=== PATIENT | male | born 1995 | race Two or more races ===

== ENCOUNTER 2018-04-13 01:56 | Emergency (ER) | payer BC, MEDICAID ==
[~2018-04-13] VITALS: Ht 193 cm; Wt 144.2 kg
[2018-04-13] MEDS ORDERED: ONDANSETRON ODT 4 MG ONE (02:17)
--- NOTE | 2018-04-13 02:29 | NUR ---
HR IS STILL 120-130'S GIVEN URINE CUP FOR UA PT UNDERSTOOD
[2018-04-13] MEDS ORDERED: ONDANSETRON ODT 4 MG PO ONE (02:30)
--- NOTE | 2018-04-13 02:35 | NUR ---
GIVEN ZOFRAN PO PER NAUSEA
[2018-04-13 02:36] LABS: BASOPHILS % (AUTO) 1 % (0-1); EOSINOPHILS # (AUTO) 0.03 x10^3/uL (0-0.4); EOSINOPHILS % (AUTO) 0 % (1-7); LYMPHOCYTES # (AUTO) 3.08 x10^3/uL (1-3.4); LYMPHOCYTES % (AUTO) 23 % (22-44); MD NO; MEAN CORPUSCULAR HEMOGLOBIN 26.7 pg (27.5-34.5); MEAN CORPUSCULAR HGB CONC 32.8 g/dL (33.2-36.2); MEAN CORPUSCULAR VOLUME 81.3 fL (81-97); MEAN PLATELET VOLUME 7.9 fL (7.4-10.4); MONOCYTES # (AUTO) 0.82 x10^3/uL (0.2-0.8); MONOCYTES % (AUTO) 6 % (2-9); NEUTROPHILS # (AUTO) 9.22 x10^3/uL (1.8-6.8); NEUTROPHILS % (AUTO) 70 % (42-75); PLATELET COUNT 537 x10^3/uL (130-400); RED BLOOD COUNT 4.53 x10^6/uL (4.38-5.82); RED CELL DISTRIBUTION WIDTH 14.2 % (9.4-14.8)
--- NOTE | 2018-04-13 02:39 | NUR ---
US IN RM
[2018-04-13 02:49] LABS: ALANINE AMINOTRANSFERASE 47 U/L (12-78); ALBUMIN 3.5 g/dL (3.4-5.0); ANION GAP 9 mmol/L (5-15); CALCIUM 8.5 mg/dL (8.5-10.1); CHLORIDE 105 mmol/L (98-107); CREATININE 1.07 mg/dL (0.7-1.3)
[2018-04-13 02:51] LABS: ALKALINE PHOSPHATASE 77 U/L (45-117); BILIRUBIN,TOTAL 0.3 mg/dL (0.2-1.0); TOTAL PROTEIN 7.8 g/dL (6.4-8.2)
[2018-04-13] MEDS ORDERED: MAALOX/HYOSCYAMINE/LIDOCAINE 45 ML BTL ONE (02:57)
[2018-04-13] MEDS ORDERED: MAALOX/HYOSCYAMINE/LIDOCAINE 45 ML BTL PO ONE (03:00)
--- NOTE | 2018-04-13 04:18 | NUR ---
DC ORDER WAS RECEIVED
--- NOTE | 2018-04-13 04:24 | NUR ---
GIVEN DC INSTRUCTION WITH PCP INFORMATION LIST PT WILL FOLLOW UP WITH PCP IF NOT FEELING BETTER OR COMING TO ER
[2018-04-13 04:25] VITALS: BP 117/89
[2018-04-14] MEDS ORDERED: FAMO-79 PO (21:15)
== END 2018-04-13 04:27 | disposition home or self-care (01) ==
LOC: ED 02:58
DX: R10.13 Epigastric pain (principal); R11.10 Vomiting, unspecified
CPT/HCPCS: 36415; 76700; 80053; 83690; 85025; 86677; 93005; 99284; Q0162

== ENCOUNTER 2018-04-14 20:04 | Inpatient (IN) | payer MEDICAID ==
[~2018-04-14] VITALS: Ht 182.9 cm; Wt 128.9 kg
--- NOTE | 2018-04-14 21:03 | NUR ---
PT TO ROOM FROM LOBBY AT THIS TIME.
[2018-04-14] MEDS ORDERED: FAMO-79 PO (21:15)
[2018-04-14 22:10] LABS: BASOPHILS # (AUTO) 0.08 x10^3/uL (0-0.1); BASOPHILS % (AUTO) 1 % (0-1); EOSINOPHILS # (AUTO) 0.05 x10^3/uL (0-0.4); EOSINOPHILS % (AUTO) 0 % (1-7); LYMPHOCYTES # (AUTO) 3.97 x10^3/uL (1-3.4); LYMPHOCYTES % (AUTO) 29 % (22-44); MD NO; MEAN CORPUSCULAR HEMOGLOBIN 26.6 pg (27.5-34.5); MEAN CORPUSCULAR HGB CONC 32.9 g/dL (33.2-36.2); MEAN CORPUSCULAR VOLUME 80.9 fL (81-97); MEAN PLATELET VOLUME 7.9 fL (7.4-10.4); MONOCYTES # (AUTO) 1.21 x10^3/uL (0.2-0.8); MONOCYTES % (AUTO) 9 % (2-9); NEUTROPHILS # (AUTO) 8.36 x10^3/uL (1.8-6.8); NEUTROPHILS % (AUTO) 61 % (42-75); PLATELET COUNT 540 x10^3/uL (130-400); RED BLOOD COUNT 4.55 x10^6/uL (4.38-5.82); RED CELL DISTRIBUTION WIDTH 14.1 % (9.4-14.8)
[2018-04-14 22:21] LABS: ALANINE AMINOTRANSFERASE 49 U/L (12-78); ALBUMIN 3.4 g/dL (3.4-5.0); ANION GAP 9 mmol/L (5-15); CALCIUM 8.3 mg/dL (8.5-10.1); CHLORIDE 105 mmol/L (98-107)
[2018-04-14 22:24] LABS: ALKALINE PHOSPHATASE 74 U/L (45-117); BILIRUBIN,TOTAL 0.4 mg/dL (0.2-1.0); TOTAL PROTEIN 7.4 g/dL (6.4-8.2)
[2018-04-14] MEDS ORDERED: OMNIPAQUE 350 MG/ML, 100ML BOTTLE ONE (22:54)
--- NOTE | 2018-04-14 23:01 | NUR ---
PT REQUESTING MED FOR PAIN & NAUSEA. TOOK ZOFRAN 4MG PO AT 1900 TODAY. PAIN CURRENTLY 06/23. PT RESTING ON BED W/ SIDE RAILS UP X2. Addendum: 04/14/18 at 2303 by CAS SYLVIA NOTIFIED OF PT REQUEST.
[2018-04-14] MEDS ORDERED: METOCLOPRAMIDE 5 MG/ML, 2ML ONE (23:09)
--- NOTE | 2018-04-14 23:17 | NUR ---
PT WILL BE ADMITTED D/T PERICARDIAL EFFUSION AND ASCITES CARDS CALLED
[2018-04-14] MEDS ORDERED: METOCLOPRAMIDE 5 MG/ML, 2ML IVPush ONE (23:30)
--- NOTE | 2018-04-14 23:54 | NUR ---
given report to jd duggan
--- NOTE | 2018-04-15 00:03 | NUR ---
pt resting in bed, no complaints at this time, vss.
[2018-04-15 00:14] LABS: TROPONIN I < 0.015 ng/mL (0.000-0.045)
--- NOTE | 2018-04-15 01:39 | NUR ---
REPORT CALLED TO FLOOR
[2018-04-15 02:00] LABS: FREE T4 (FREE THYROXINE) 1.95 ng/dL (0.76-1.46)
[2018-04-15] MEDS ORDERED: ONDANSETRON 2MG/ML, 2ML IVPush PRN (02:00)
[2018-04-15] MEDS ORDERED: ACETAMINOPHEN 325 MG TABLET PO PRN ×2 (02:00→16:30)
[2018-04-15] MEDS ORDERED: IBUPROFEN 600 MG TABLET PO PRN (02:00)
[2018-04-15 02:21] VITALS: BP 140/82
[2018-04-15 02:22] VITALS: BP 140/82
[2018-04-15] MEDS ORDERED: ONDA4TAB13 SL (02:37)
[2018-04-15 04:15] LABS: MICROSCOPIC NOT IND
[2018-04-15 04:42] LABS: CULTURE INDICATED? NO
[2018-04-15 07:07] VITALS: BP 131/83
[2018-04-15] MEDS: PANTOPRAZOLE 40 MG IV IVPush SCH (08:32)
[2018-04-15] MEDS ORDERED: SUCCINYLCHOLINE 20 MG/ML, 10ML ONE (08:56)
[2018-04-15] MEDS ORDERED: VECURONIUM 10 MG ONE (08:56)
[2018-04-15] MEDS: SODIUM CHLORIDE 0.9% 1,000 ML IV SCH ×3 (10:30→22:00)
[2018-04-15 11:15] VITALS: BP 103/73
[2018-04-15 12:41] VITALS: BP 118/79
[2018-04-15] MEDS ORDERED: MIDAZOLAM 1 MG/ML, 2ML ONE ×2 (15:04→15:22)
[2018-04-15] MEDS ORDERED: FENTANYL PF 100 MCG/2ML ONE ×4 (15:04→18:30)
[2018-04-15] MEDS ORDERED: LIDOCAINE 2%, 20ML ONE (15:09)
[2018-04-15] MEDS ORDERED: LIDOCAINE 1%, 20ML ONE (15:09)
[2018-04-15] MEDS ORDERED: FENTANYL PF 250 MCG/5ML ONE (15:53)
[2018-04-15] MEDS ORDERED: ZOLPIDEM 5MG TABLET PO PRN (16:30)
[2018-04-15] MEDS ORDERED: MIDAZOLAM 1 MG/ML, 5ML ONE (16:45)
[2018-04-15 16:52] LABS: ANA SCREEN NEGATIVE (Negative)
[2018-04-15] MEDS ORDERED: PROPOFOL 100 ML IV ONE (17:50)
[2018-04-15] MEDS ORDERED: DEXTROSE 4 GM TAB.CHEW PO PRN (19:00)
[2018-04-15] MEDS ORDERED: GLUCAGON 1 MG IM PRN (19:00)
[2018-04-15] MEDS ORDERED: BISACODYL 10 MG SUPP PR PRN (19:00)
[2018-04-15] MEDS ORDERED: FAMOTIDINE 20 MG/2 ML IV SCH (19:00)
[2018-04-15] MEDS ORDERED: SENNOSIDES 8.8 MG/5 ML ORAL SOL NG PRN (19:00)
[2018-04-15] MEDS ORDERED: DEXTROSE 50%, 50ML SYRINGE IVPush PRN (19:00)
[2018-04-15] MEDS ORDERED: LACTULOSE 20 GM/30 ML UDC NG PRN (19:00)
[2018-04-15] MEDS ORDERED: FENTANYL PF 100 MCG/2ML IVPush PRN (19:00)
[2018-04-15] MEDS ORDERED: SENNA/DOCUSATE TABLET NG PRN (19:00)
[2018-04-15] MEDS ORDERED: PHARMACY MAY ADJ FOR RENAL FX MC SCH (19:00)
[2018-04-15] MEDS ORDERED: LIDOCAINE-MPF 1%, 2ML ENDO PRN (19:00)
[2018-04-15] MEDS: PROPOFOL 100 ML IV PRN ×2 (19:55→22:23)
[2018-04-15] MEDS ORDERED: FENTANYL PF 100 MCG/2ML IVPush ONE (20:00)
[2018-04-15 20:14] LABS: CULTURE INDICATED? YES; MICROSCOPIC INDICATED
[2018-04-15] MEDS ORDERED: INSULIN LISPRO 100 UNITS/ML, PEN SQ-INSULIN SCH (21:00)
[2018-04-15] MEDS: INSULIN LISPRO 100 UNITS/ML, PEN SQ-INSULIN SCH (21:00)
[2018-04-15] MEDS: SODIUM CHLORIDE FLUSH 10ML SYR IVF SCH (22:05)
[2018-04-15] MEDS ORDERED: SODIUM CHLORIDE 0.9% 1,000 ML IV SCH (22:30)
[2018-04-15] MEDS: ALBUTEROL/IPRATROPIUM 2.5MG/0.5MG, 3 ML INLINE SCH (23:00)
[2018-04-16 00:02] LABS: RAPID INFLUENZA A Negative (Negative); RAPID INFLUENZA B Negative (Negative)
[2018-04-16] MEDS: PROPOFOL 100 ML IV PRN ×3 (00:54→06:45)
[2018-04-16] MEDS: INSULIN LISPRO 100 UNITS/ML, PEN SQ-INSULIN SCH ×2 (03:00→08:31)
[2018-04-16] MEDS ORDERED: SODIUM CHLORIDE 0.9%, 500ML IVBOLUS ONE (04:00)
[2018-04-16 04:45] LABS: ALBUMIN 2.7 g/dL (3.4-5.0); ANION GAP 8 mmol/L (5-15); BASOPHILS # (AUTO) 0.02 x10^3/uL (0-0.1); BASOPHILS % (AUTO) 0 % (0-1); CALCIUM 7.5 mg/dL (8.5-10.1); CHLORIDE 110 mmol/L (98-107); EOSINOPHILS % (AUTO) 0 % (1-7); LYMPHOCYTES # (AUTO) 0.81 x10^3/uL (1-3.4); LYMPHOCYTES % (AUTO) 8 % (22-44); MD NO; MEAN CORPUSCULAR HGB CONC 33.4 g/dL (33.2-36.2); MEAN CORPUSCULAR VOLUME 80.9 fL (81-97); MEAN PLATELET VOLUME 8.1 fL (7.4-10.4); MONOCYTES # (AUTO) 0.46 x10^3/uL (0.2-0.8); MONOCYTES % (AUTO) 5 % (2-9); NEUTROPHILS # (AUTO) 8.65 x10^3/uL (1.8-6.8); NEUTROPHILS % (AUTO) 87 % (42-75); PLATELET COUNT 466 x10^3/uL (130-400); RED BLOOD COUNT 3.72 x10^6/uL (4.38-5.82); RED CELL DISTRIBUTION WIDTH 13.9 % (9.4-14.8)
[2018-04-16 04:57] LABS: ALANINE AMINOTRANSFERASE 38 U/L (12-78); ALKALINE PHOSPHATASE 62 U/L (45-117); BILIRUBIN,TOTAL 0.5 mg/dL (0.2-1.0); CREATININE 0.91 mg/dL (0.7-1.3); TOTAL PROTEIN 6.2 g/dL (6.4-8.2)
[2018-04-16] MEDS: ALBUTEROL/IPRATROPIUM 2.5MG/0.5MG, 3 ML INLINE SCH ×2 (07:05→10:45)
[2018-04-16] MEDS: PANTOPRAZOLE 40 MG IV IVPush SCH (08:47)
[2018-04-16] MEDS: SODIUM CHLORIDE FLUSH 10ML SYR IVF SCH ×2 (08:48→21:16)
[2018-04-16] MEDS ORDERED: FUROSEMIDE 20 MG/2 ML IV ONE (09:30)
[2018-04-16] MEDS ORDERED: OMNIPAQUE 350 MG/ML, 100ML BOTTLE ONE (15:36)
[2018-04-16] MEDS ORDERED: ALBUTEROL SULFATE 2.5 MG/3 ML NPPB SCH (20:00)
[2018-04-16] MEDS ORDERED: SODIUM CHLORIDE 0.9% 1,000 ML IV SCH (22:30)
[2018-04-17 04:43] LABS: ANION GAP 9 mmol/L (5-15); CALCIUM 8.2 mg/dL (8.5-10.1); CHLORIDE 107 mmol/L (98-107); CREATININE 0.88 mg/dL (0.7-1.3)
[2018-04-17 04:52] LABS: BASOPHILS % (AUTO) 0 % (0-1); EOSINOPHILS # (AUTO) 0.01 x10^3/uL (0-0.4); EOSINOPHILS % (AUTO) 0 % (1-7); LYMPHOCYTES # (AUTO) 2.06 x10^3/uL (1-3.4); LYMPHOCYTES % (AUTO) 18 % (22-44); MD NO; MEAN CORPUSCULAR VOLUME 81.2 fL (81-97); MEAN PLATELET VOLUME 7.7 fL (7.4-10.4); MONOCYTES # (AUTO) 0.91 x10^3/uL (0.2-0.8); MONOCYTES % (AUTO) 8 % (2-9); NEUTROPHILS # (AUTO) 8.41 x10^3/uL (1.8-6.8); NEUTROPHILS % (AUTO) 74 % (42-75); PLATELET COUNT 478 x10^3/uL (130-400); RED BLOOD COUNT 4.11 x10^6/uL (4.38-5.82); RED CELL DISTRIBUTION WIDTH 14.5 % (9.4-14.8)
[2018-04-17] MEDS: SODIUM CHLORIDE FLUSH 10ML SYR IVF SCH ×2 (07:26→21:06)
[2018-04-17] MEDS: PANTOPRAZOLE 40 MG IV IVPush SCH (07:26)
[2018-04-17 14:30] VITALS: BP 141/84
[2018-04-17] MEDS ORDERED: POLYETHYLENE GLYCOL 17 GM PACKET PO PRN (15:30)
[2018-04-17] MEDS ORDERED: LACTULOSE 20 GM/30 ML UDC PO PRN (15:30)
[2018-04-17] MEDS ORDERED: BISACODYL 10 MG SUPP PR PRN (15:30)
[2018-04-17] MEDS ORDERED: MAGNESIUM CITRATE 300ML ORAL SOL PO PRN (15:30)
[2018-04-17 20:29] VITALS: BP 148/85
[2018-04-18 01:28] VITALS: BP 143/84
[2018-04-18 05:51] LABS: BASOPHILS # (AUTO) 0.03 x10^3/uL (0-0.1); BASOPHILS % (AUTO) 0 % (0-1); EOSINOPHILS # (AUTO) 0.12 x10^3/uL (0-0.4); EOSINOPHILS % (AUTO) 1 % (1-7); LYMPHOCYTES # (AUTO) 2.56 x10^3/uL (1-3.4); LYMPHOCYTES % (AUTO) 25 % (22-44); MD NO; MEAN CORPUSCULAR HGB CONC 32.2 g/dL (33.2-36.2); MEAN CORPUSCULAR VOLUME 80.7 fL (81-97); MEAN PLATELET VOLUME 7.5 fL (7.4-10.4); MONOCYTES # (AUTO) 0.99 x10^3/uL (0.2-0.8); MONOCYTES % (AUTO) 10 % (2-9); NEUTROPHILS # (AUTO) 6.68 x10^3/uL (1.8-6.8); NEUTROPHILS % (AUTO) 64 % (42-75); PLATELET COUNT 485 x10^3/uL (130-400); RED BLOOD COUNT 4.43 x10^6/uL (4.38-5.82); RED CELL DISTRIBUTION WIDTH 14.1 % (9.4-14.8)
[2018-04-18 05:52] LABS: ALBUMIN 3.3 g/dL (3.4-5.0); ANION GAP 7 mmol/L (5-15); CALCIUM 8.6 mg/dL (8.5-10.1); CHLORIDE 106 mmol/L (98-107)
[2018-04-18 05:55] LABS: ALANINE AMINOTRANSFERASE 36 U/L (12-78); ALKALINE PHOSPHATASE 84 U/L (45-117); BILIRUBIN,TOTAL 0.6 mg/dL (0.2-1.0); CREATININE 0.78 mg/dL (0.7-1.3); TOTAL PROTEIN 7.7 g/dL (6.4-8.2); TRIGLYCERIDES 118 mg/dL (50-200)
[2018-04-18 07:22] VITALS: BP 140/78
[2018-04-18] MEDS: PANTOPRAZOLE 40 MG IV IVPush SCH (07:30)
[2018-04-18] MEDS: PANTOPROZOLE 40MG TABLET PO SCH (11:24)
[2018-04-18] MEDS: SODIUM CHLORIDE FLUSH 10ML SYR IVF SCH ×2 (11:25→22:02)
[2018-04-18 20:08] VITALS: BP 143/85
[2018-04-19 01:58] VITALS: BP 133/83
[2018-04-19 05:50] LABS: T4 (THYROXINE) 14.3 mcg/dL (4.5-12.1)
[2018-04-19] MEDS: PANTOPROZOLE 40MG TABLET PO SCH (06:11)
[2018-04-19 07:12] VITALS: BP 146/86
[2018-04-19] MEDS: SODIUM CHLORIDE FLUSH 10ML SYR IVF SCH (09:52)
[2018-04-19] MEDS ORDERED: NAPROXEN 500 MG TABLET PO SCH (13:30)
[2018-04-19 15:51] VITALS: BP 139/83
[2018-04-19] MEDS ORDERED: NAPR-685 PO (16:10)
== END 2018-04-19 17:55 | disposition home or self-care (01) | DRG 208 ==
LOC: ED 23:22 → EDIP 04-15 01:06 → 5SO 04-15 02:00 → ICU 04-15 17:19 → 5SO 04-17 15:24
PROVIDERS: ADMIT Internal Medicine; ATTEND Family Medicine
PROC: 5A1945Z Respiratory Ventilation, 24-96 Consecutive Hours (ICD-10-PCS; 2018-04-15)
PROC: 0BH17EZ Insertion of Endotracheal Airway into Trachea, Via Natural or Artificial Opening (ICD-10-PCS; 2018-04-15)
PROC: 0T9B70Z Drainage of Bladder with Drainage Device, Via Natural or Artificial Opening (ICD-10-PCS; 2018-04-15)
PROC: 0BJ08ZZ Inspection of Tracheobronchial Tree, Via Natural or Artificial Opening Endoscopic (ICD-10-PCS; 2018-04-15)
PROC: 0W9D3ZZ Drainage of Pericardial Cavity, Percutaneous Approach (ICD-10-PCS; principal; 2018-04-15 15:00)
DX: J96.01 Acute respiratory failure with hypoxia (principal); I31.3 Pericardial effusion (noninflammatory); J90 Pleural effusion, not elsewhere classified; R18.8 Other ascites; I31.4 Cardiac tamponade; J98.11 Atelectasis; Z99.11 Dependence on respirator [ventilator] status; E04.1 Nontoxic single thyroid nodule; I95.9 Hypotension, unspecified; Z83.3 Family history of diabetes mellitus; Z87.891 Personal history of nicotine dependence
CPT/HCPCS: 33010; 36415; 36600; 82945; 87400; 87806; 99291; J7613; J7620; 31624; 71045; 71260; 74177; 76536; 76930; 80048; 80053; 81001; 81003; 82803; 82962; 83690; 83735; 84100; 84157; 84436; 84439; 84443; 84478; 84481; 84484; 85025; 86038; 86308; 87015; 87070; 87075; 87081; 87086; 87116; 87205; 87206; 88112; 88305; 89051; 90656; 93005; 93308; 93321; 93325; 94002; 94003; 94640; C1729; G0378; J2250; J2405; J2704; J3010; J3490; Q9967; C9113; G0475; J0330; J1940; J2765; J7030; J7040